=== PATIENT | female | born 1995 | race Two or more races ===

== ENCOUNTER 2018-11-12 14:00 | Inpatient (IN) | payer OTHER ==
[~2018-11-12] VITALS: Ht 175.3 cm; Wt 100.7 kg
[2018-11-28] MEDS ORDERED: PRENATAL TABLE1 EAC1 PO (06:06)
== END 2018-11-30 12:13 | disposition home or self-care (01) | DRG 807 ==
LOC: OB/GYN 11-20 15:00 → LDR 11-28 05:21 → OB/GYN 11-28 05:21
PROVIDERS: ADMIT Specialist
PROC: 10E0XZZ Delivery of Products of Conception, External Approach (ICD-10-PCS; principal; 2018-11-28)
PROC: 0HQ9XZZ Repair Perineum Skin, External Approach (ICD-10-PCS; 2018-11-28)
PROC: 3E033VJ Introduction of Other Hormone into Peripheral Vein, Percutaneous Approach (ICD-10-PCS; 2018-11-28)
PROC: 10907ZC Drainage of Amniotic Fluid, Therapeutic from Products of Conception, Via Natural or Artificial Opening (ICD-10-PCS; 2018-11-28)
PROC: 4A1HXCZ Monitoring of Products of Conception, Cardiac Rate, External Approach (ICD-10-PCS; 2018-11-28)
DX: O70.0 First degree perineal laceration during delivery (principal); Z37.0 Single live birth; O24.420 Gestational diabetes mellitus in childbirth, diet controlled; Z3A.38 38 weeks gestation of pregnancy